=== PATIENT | female | born 1945 | race Caucasian/White ===

== ENCOUNTER 2017-09-27 13:15 | Outpatient (CLI) | payer MEDICARE | END 2017-09-27 13:16 | disposition home or self-care (01) | LOC: BICMAMMO 13:15 | PROVIDERS: ATTEND Obstetrics & Gynecology | DX: Z12.31 Encounter for screening mammogram for malignant neoplasm of breast (principal); N61.0 Mastitis without abscess; N63.20 Unspecified lump in the left breast, unspecified quadrant; N63.10 Unspecified lump in the right breast, unspecified quadrant; Z80.3 Family history of malignant neoplasm of breast | CPT/HCPCS: 77063; 77067 ==

== ENCOUNTER 2018-05-03 07:58 | Outpatient (CLI) | payer MEDICARE ==
--- NOTE | 2018-05-03 10:06 | BD ---
DEXA BONE MINERAL DENSITY STUDY: Date: 05/03/18 HISTORY: Osteoporosis. FINDINGS: Lumbar Spine: BMD (g/cm2) L1 0.729 T-Score: -2.4 Z-Score: -0.5 L2 0.762 T-Score: -2.4 Z-Score: -0.3 L3 0.667 T-Score: -3.8 Z-Score: -1.6 L4 0.592 T-Score: -4.3 Z-Score: -2.0 L1-L4 0.687 T-Score: -3.3 Z-Score: -1.1 Femoral Neck: 0.616 T-Score: -2.1 Z-Score: -0.3 Total Femur: 0.779 T-Score: -1.3 Z-Score: 0.2 Comparison made with prior study on 09/03/15. There has been interval increase in bone mineral densit y of 19.3% of the lumbar spine and decrease in bone mineral density of the left femoral neck by 5.2%. IMPRESSION: 1. Marked osteopenia lumbar spine indicating an eightfold increased risk for fracture. 2. Moderate osteopenia of the left femoral neck indicating a fourfold increased risk for fracture. POS: [facility]
== END 2018-05-03 07:59 | disposition home or self-care (01) ==
LOC: BICMAMMO 07:58
PROVIDERS: ATTEND Internal Medicine Rheumatology
DX: M81.0 Age-related osteoporosis without current pathological fracture (principal); M85.89 Other specified disorders of bone density and structure, multiple sites
CPT/HCPCS: 77080

== ENCOUNTER 2019-12-18 18:00 | Outpatient (CLI) | payer MEDICARE | END 2019-12-18 18:01 | disposition home or self-care (01) | LOC: SLEEPLAB 18:00 | PROVIDERS: ATTEND Internal Medicine | DX: G47.33 Obstructive sleep apnea (adult) (pediatric) (principal); R53.83 Other fatigue; E66.9 Obesity, unspecified; R06.83 Snoring; G47.00 Insomnia, unspecified; I10 Essential (primary) hypertension; Z68.41 Body mass index [BMI] 40.0-44.9, adult | CPT/HCPCS: 95806 ==

== ENCOUNTER 2020-01-23 19:30 | Outpatient (CLI) | payer MEDICARE | END 2020-01-23 19:31 | disposition home or self-care (01) | LOC: SLEEPLAB 19:30 | PROVIDERS: ATTEND Internal Medicine | DX: G47.33 Obstructive sleep apnea (adult) (pediatric) (principal); R53.83 Other fatigue; E66.9 Obesity, unspecified; R06.83 Snoring; G47.00 Insomnia, unspecified; I10 Essential (primary) hypertension; Z68.41 Body mass index [BMI] 40.0-44.9, adult; G47.10 Hypersomnia, unspecified | CPT/HCPCS: 95811 ==